=== PATIENT | female | born 1980 | race Caucasian/White ===

== ENCOUNTER 2017-11-15 11:06 | Outpatient (CLI) | payer MEDICAID ==
--- NOTE | 2017-11-15 12:39 | MMO ---
BILATERAL SCREENING MAMMOGRAM: History: 29-year old female, routine screening mammography. Comparison: None. Baseline mammogram. Technique: CC and MLO views of both breasts are submitted for interpretation with implants present and implants displaced. This patient's mammograms were reviewed with the assistance of computer detection. FINDINGS: Breasts are composed of scattered fibroglandular tissues. Bilaterally, no suspicious dominant mass, a rchitectural distortion, or suspicious calcifications. There are bilateral benign appearing calcifica tions in the left breast. Bilateral implants are intact. There is asymmetric prominence of the left pectoralis muscle. Signific ance is of uncertain. IMPRESSION: BIRADS category 2 - benign findings. RECOMMENDATION: Patient should retain at age 39 for routine mammography. POS: RIAN
== END 2017-11-15 11:07 | disposition home or self-care (01) ==
LOC: SCSMAMMO 11:06
PROVIDERS: ATTEND Family Medicine
DX: Z12.31 Encounter for screening mammogram for malignant neoplasm of breast (principal); Z80.3 Family history of malignant neoplasm of breast
CPT/HCPCS: 77067

== ENCOUNTER 2020-01-22 10:50 | Outpatient (CLI) | payer MEDICAID ==
--- NOTE | 2020-01-22 11:37 | ULT ---
Exam: Transabdominal and endovaginal pelvic ultrasound HISTORY:Amenorrhea and pelvic pain, x3 months COMPARISON: None TECHNIQUE: Transabdominal and endovaginal imaging of the pelvis is performed. Ovaries are interrogate d with grayscale, color flow, Doppler imaging and spectral wave form analysis FINDINGS: Uterus: Solid echotexture focus involving the uterine fundus measuring 3.6 x 3.1 x 4.0 cm, compatible with leiomyoma Uterus measurin.5 x 5.3 x 6.3 cm. Endometrium: Homogeneous echotexture. Endometrium diameter: 0.7 cm. Free fluid: None Right ovary: Normal echotexture Right ovary measurement: 3.0 x 1.9 x 3.3 cm Left ovary: Normal echotexture. Left ovary measurements: 2.4 x 2.8 x 2.4 cm Ovarian Doppler: There is vascular flow to the left and right ovary. IMPRESSION: 1. Uterine leiomyoma involving the uterine fundus. Consider CVT TECH consultation.
== END 2020-01-22 10:51 | disposition home or self-care (01) ==
LOC: BICULT 10:50
PROVIDERS: ATTEND Nurse Practitioner
DX: N91.2 Amenorrhea, unspecified (principal); R10.2 Pelvic and perineal pain; D25.9 Leiomyoma of uterus, unspecified
CPT/HCPCS: 76856